=== PATIENT | female | born 1980 ===

== ENCOUNTER 2018-05-12 12:06 | Emergency (ER) | payer SELFPAY ==
[~2018-05-12] VITALS: Ht 165.1 cm; Wt 61.2 kg
[2018-05-12] MEDS ORDERED: diphenhydrAMINE 50 MG/ML INJ (BENADRYL) IVP ONE (13:00)
--- NOTE | 2018-05-12 13:24 | Diagnostic Imaging Report ---
PROCEDURE: CT head without contrast. TECHNIQUE: Multiple contiguous axial images were obtained through the brain without the use of intravenous contrast. INDICATION: New-onset headache and nosebleed. COMPARISON: None. DISCUSSION: No intracranial hemorrhage, mass, midline shift, or hydrocephalus. The ventricles and sulci are normal size and configuration for age. The visualized orbits, mastoid air cells, and calvarium are unremarkable. Mucosal thickening noted within the ethmoid air cells. IMPRESSION: 1. No acute intracranial abnormality identified. Dictated by: Dictated on workstation # [id number]
[2018-05-12] MEDS ORDERED: KETOROLAC 30 MG/ML VIAL IVP ONE (13:30)
[2018-05-12 13:59] LABS: BASOPHILS % (AUTO) 0 % (0-10); EOSINOPHILS # (AUTO) 0.1 10^3/uL (0.0-0.3); EOSINOPHILS % (AUTO) 1 % (0-10); HEMATOCRIT 29 % (35-52); LYMPHOCYTES # (AUTO) 1.1 X 10^3 (1.0-4.0); LYMPHOCYTES % (AUTO) 12 % (12-44); MEAN CORPUSCULAR HEMOGLOBIN 22 PG (25-34); MEAN CORPUSCULAR HGB CONC 31 G/DL (32-36); MEAN CORPUSCULAR VOLUME 70 FL (80-99); MEAN PLATELET VOLUME 9.2 FL (7.4-10.4); MONOCYTES # (AUTO) 0.5 X 10^3 (0.0-1.0); MONOCYTES % (AUTO) 6 % (0-12); NEUTROPHILS % (AUTO) 81 % (42-75); PLATELET COUNT 422 10^3/uL (130-400); RED BLOOD COUNT 4.16 10^6/uL (4.35-5.85); RED CELL DISTRIBUTION WIDTH 17.9 % (10.0-14.5); WHITE BLOOD COUNT 8.6 10^3/uL (4.3-11.0)
[2018-05-12 14:17] LABS: ALANINE AMINOTRANSFERASE 37 U/L (0-55); ALBUMIN 4.3 GM/DL (3.2-4.5); ALKALINE PHOSPHATASE 84 U/L (40-136); BILIRUBIN,TOTAL 0.2 MG/DL (0.1-1.0); BUN/CREATININE RATIO 14; CALCIUM 9.1 MG/DL (8.5-10.1); CARBON DIOXIDE 24 MMOL/L (21-32); CHLORIDE 107 MMOL/L (98-107); CREATININE SERUM 0.65 MG/DL (0.60-1.30); GFR ESTIMATED > 60; GLUCOSE 105 MG/DL (70-105); SODIUM 141 MMOL/L (135-145); TOTAL PROTEIN 7.6 GM/DL (6.4-8.2)
--- NOTE | 2018-05-12 14:51 | ED EENT ---
History of Present Illness General Chief Complaint: Nasal Problems Stated Complaint: BLEEDING FROM NOSE, MOUTH Nursing Triage Note: Patient advises she has been experiencing a headache for approximately one month. Today she began experiencing pain in her head and face as well as a nose bleed that began approximately 20 minutes prior to arriving to the ER. Bleeding is controlled at this time with manual pressure and nose clamps. 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 She is also reports that she has had a headache for the past month. She reports being seen in [facility] 3 weeks ago for the migraine and was told that she had eye nerve inflammation. She agrees to release records from [facility]. I had her blow out clots from her nose and a nose clamp was placed on arrival to ED. Bleed stopped prior to the end of my exam. She is Romanian speaking and conference translator line was used for exam and triage. Timing/Duration: abrupt, other (1month) Location: nose Prearrival Treatment: no prearrival treatment Associated Symptoms: other Allergies and Home Medications Allergies Coded Allergies: No Known Drug Allergies (Unverified , 05/12/18) Home Medications Prednisone 20 Mg Tab, 40 MG PO DAILY Prescribed by: CARLY LEPE on 05/12/18 1506 Patient Home Medication List Home Medication List Reviewed: Yes Review of Systems Review of Systems Constitutional: see HPI Nose: see HPI, epistaxis Neurological: See HPI, Headache All Other Systems Reviewed Negative Unless Noted: Yes Past Cekvsba-Jhacbg-Gxcoux Hx Past Med/Social Hx: Reviewed Nursing Past Med/Soc Hx Patient Social History Alcohol Use: Denies Use Recreational Drug Use: No Smoking Status: Never a Smoker Recent Foreign Travel: No Contact w/Someone Who Travel: No Recent Infectious Disease Expo: No Recent Hopitalizations: No Seasonal Allergies Seasonal Allergies: No Past Medical History Surgeries: No Respiratory: No Cardiac: No Neurological: No Genitourinary: No Gastrointestinal: No Musculoskeletal: No Endocrine: No HEENT: No Cancer: No Psychosocial: No Integumentary: No Blood Disorders: Yes (chronic anemia) Family Medical History Reviewed Nursing Family Hx Physical Exam Vital Signs Vital Signs - First Documented 10/20/18 12:30 Pulse 72 Resp 14 B/P (MAP) 135/82 (99) Pulse Ox 100 O2 Delivery Room Air Height, Weight, BMI Height: 5'5.00" Weight: 135lbs. oz. 61.038405bt; BMI Method:Estimated General Appearance: WD/WN, no apparent distress Eyes: bilateral eye normal inspection, bilateral eye PERRL, bilateral eye EOMI Ears: bilateral ear auricle normal, bilateral ear canal normal, bilateral ear TM normal Nose: active bleeding (right nare bleeding, small visibal clot.) Cardiovascular: normal peripheral pulses, regular rate, rhythm, no edema, no gallop, no JVD, no murmur Respiratory: chest non-tender, lungs clear, normal breath sounds, no respiratory distress, no accessory muscle use Neurologic/Psychiatric: alert, normal mood/affect, oriented x 3, other ( tenderness to her left temporal area. ) Skin: normal color, warm/dry Progress/Results/Core Measures Results/Orders Lab Results My Orders Medications Given in ED Vital Signs/I&O Blood Pressure Mean: 99 Urine -Bedside: Negative Progress Progress Note : Progress Note 1500: I have seen and evaluated the patient. [facility] I have spoke to Dr. Andre in regards to her laboratory findings and concerns with temporal arteritis. I will be placing the patient on a steroid burst pack for 7 days and having her follow up with Dr. Andre at the [facility] next week. Dr. Andre states that they will call the patient on Monday morning to let her know appointment time. Patient agrees with plans of care, plans were discharged, return precautions were given. No active bleeding since clamp was removed. Diagnostic Imaging Diagonstic Imaging: CT Plain Films/CT/US/NM/MRI: head Comments NAME: MARIMAR VELÁSQUEZ [facility] REC#: [id number] PHYSICIAN: CARLY LEPE CC: CARLY LEPE; JAN CASAS MD Page 1 of [address] [facility]. [place], [place] CC: CARLY LEPE; JAN CASAS MD Page 1 of 1 RADIOLOGY REPORT NAME: MARIMAR VELÁSQUEZ [facility] REC#: [id number] PT STATUS: DEP ER : [id number] PHYSICIAN: CARLY LEPE ADMIT DATE: 05/12/18/ER Signed Date of Exam: 05/12/18 CT HEAD WO PROCEDURE: CT head without contrast. TECHNIQUE: Multiple contiguous axial images were obtained through the brain without the use of intravenous contrast. INDICATION: New-onset headache and nosebleed. COMPARISON: None. DISCUSSION: No intracranial hemorrhage, mass, midline shift, or hydrocephalus. The ventricles and sulci are normal size and configuration for age. The visualized orbits, mastoid air cells, and calvarium are unremarkable. Mucosal thickening noted within the ethmoid air cells. IMPRESSION: 1. No acute intracranial abnormality identified. Dictated by: Dictated on workstation # [id number] Dict: 05/12/18 1320 Trans: 05/12/18 1554 Interpreted by: JAN CASAS MD Electronically signed by: JAN CASAS MD 05/12/18 1554 Reviewed: Reviewed by Me Departure Impression Primary Impression: Epistaxis Additional Impressions: Migraine Temporal arteritis Disposition: HOME, SELF-CARE Condition: Stable/Unchanged Departure-Patient Inst. Decision time for Depature: 15:03 Referrals: YELENA ANDRE MD NO,LOCAL PHYSICIAN (PCP) Primary Care Physician Patient Instructions: Migraine Headache (DC), Nosebleeds (DC) Add. Discharge Instructions: Take medication as directed. You may use ibuprofen and Tylenol as directed by the bottle for pain relief. [facility] will be calling you Monday morning for a follow-up appointment time. Be sure to have your phone available at all times. If your nosebleed should return hold pressure for 15 minutes to stop the bleeding. Return back to the emergency room for any nosebleed that she was unable to get controlled at home, worsening symptoms, worsening migraines, or any other concerns as needed. All discharge instructions reviewed with patient and/or family. Voiced understanding. Scripts Prednisone (Prednisone) 20 Mg Tab 40 MG PO DAILY for 6 Days, #12 TAB Prov: CARLY LEPE 05/12/18 CARLY LEPE May 12, 2018 14:51
[2018-05-12] MEDS ORDERED: predniSONE 20 MG TAB PO ONE (15:00)
[2018-05-12] MEDS ORDERED: PRD20T PO (15:06)
[2018-05-12 15:33] VITALS: BP 101/57
== END 2018-05-12 15:32 | disposition home or self-care (01) ==
LOC: ER 12:17
DX: R04.0 Epistaxis (principal); G43.909 Migraine, unspecified, not intractable, without status migrainosus; M31.6 Other giant cell arteritis; D64.9 Anemia, unspecified; Z79.52 Long term (current) use of systemic steroids
CPT/HCPCS: 36415; 70450; 80053; 84703; 85025; 85652; 86141